=== PATIENT | male | born 1965 | race Caucasian/White ===

== ENCOUNTER 2018-08-03 08:26 | Day surgery (SDC) | payer OTHER ==
[~2018-08-03] VITALS: Ht 175.3 cm; Wt 74.1 kg
[2018-08-03 08:44] LABS: HEMATOCRIT 46.2 % (42.0-54.0); HEMOGLOBIN 16.8 g/dL (13.5-17.5); MCH 33.1 pg (26.0-34.0); MCHC 36.4 g/dL (31.0-37.0); MCV 91.1 fL (80.0-100.0); MEAN PLATELET VOLUME 9.5 fL (7.4-10.4); RBC 5.07 10x6/uL (4.20-6.10); RDW 12.9 % (11.5-14.5); WBC 9.9 10x3/uL (4.8-10.8)
[2018-08-03 08:58] LABS: CALC OSMOLALITY 275 mosm/kg (275-300); CALCIUM 8.8 mg/dL (8.5-10.1); CARBON DIOXIDE 26.8 mmol/L (21.0-32.0); CHLORIDE - SERUM 106 mmol/L (98-107); CREATININE - SERUM 0.6 mg/dL (0.6-1.3); POTASSIUM - SERUM 3.9 mmol/L (3.5-5.1); SODIUM 141 mmol/L (136-145); UREA NITROGEN 6 mg/dL (7-18); eGFR NON AFRICAN AMERICAN > 90 mL/min (90-120)
[2018-08-03 09:00] LABS: GLUCOSE 51 mg/dL (74-106)
[2018-08-03] MEDS ORDERED: PRAVACHOL40 MG PO (09:46)
[2018-08-03] MEDS ORDERED: LISINOPRIL5 MG PO (09:47)
[2018-08-03] MEDS ORDERED: GLUCOPHAGE500 MG PO (09:47)
[2018-08-03] MEDS ORDERED: HUMALOG 30100 UNITS/ SC (09:48)
[2018-08-03] MEDS ORDERED: TRESIBA FL100 UNIT/1 SC ×2 (09:48→09:49)
[2018-08-03 09:54] VITALS: BP 131/77; Ht 175.3 cm; Wt 74.1 kg
--- NOTE | 2018-08-03 13:46 | NUR ---
1132 IV WAS DC'D WHEN IV TUBING BECAME DISCONNECTED ENROUTE TO BATHROOM. PRESSURE HELD UNTIL BLEEDING STOPPED. BANDAID APPLIED TO SITE. 1210 BS RECHECKED DUE TO LOW BS EARLIER TODAY. [id number]=[phone] RECEIVED PHONE CALL FROM DR. STALLWORTH TO REFERRED PT TO DR. HENNESSY FOR EVALUATION OF ENLARGED PROSTATE. INFORMATION PASSED ON TO PT. INFORMED DR STALLWORTH OF PTS EARLIER C/O NAUSEA AND ABD PAIN BUT THAT IT WAS RESOLVING. NO ORDERS RECEIVED.
--- NOTE | 2018-08-03 13:52 | NUR ---
1250 PT TALKING AND SMILING. STATES HIS STOMACH IS NOT HURTING BUT HIS PAIN LEVEL REMAINS A 5. HE SAID THAT IS HIS BASELINE AND THAT HE ALWAYS HURTS.
--- NOTE | 2018-08-04 17:10 | OP ---
PATIENT NAME: LUKAS LANDAVERDE MEDICAL RECORD: [id number] :63 LOCATION:D.OPS ADMISSION DATE: SURGEON: JAIMIE STALLWORTH MD DATE OF OPERATION: 08/03/2018 PREOPERATIVE DIAGNOSIS: History of a complex colon polyp at 30 cm. POSTOPERATIVE DIAGNOSES: History of a complex colon polyp at 30 cm with a right superior prostatic nodule. PROCEDURE: 1. Endoscopic mucosal resection, polypectomy. 2. Epinephrine submucosal injection. SURGEON: Jaimie Stallworth MD MECHANISM ASSEMBLER: None. BLOOD LOSS: Minimal. ANESTHESIA: IV sedation. COMPLICATIONS: None. The risks, possible complications, and alternatives to the procedure were explained to the patient. He elects to proceed. ENDOSCOPIC COURSE: The patient was conveyed to the endoscopy suite electively on 08/03/2018. IV sedation was induced by the anesthesia staff. He was placed in the Moore position. A digital rectal examination was performed. A colonoscope was inserted through the anus. It was easily advanced to the cecum. The prep was fair. I slowly withdrew the endoscope. I irrigated and aspirated extensively. The polyp was noted at the 30 cm. It was a semi-pedunculated polyp. I advanced a sclerotherapy needle. Submucosal injection of epinephrine was performed for postoperative hemostasis. I then performed a submucosal injection of Eleview to raise the polyp up. I then advanced an endoscopic snare and utilizing the coagulation setting and then the cut setting, I was able to remove the polyp in its entirety. For additional hemostatic control, I advanced the argon plasma satellite dish repairer and coagulated the polypectomy site. There were 2 other smaller polyps, both sessile polyps, smaller than 7 mm and these were ablated utilizing the argon plasma satellite dish repairer with the right colon setting in the forced mode. I advanced an endoscopic retrieval net. I retrieved the polyp at 30 cm and then withdrew the endoscope and the polyp out through the anus. I will see the patient in my office in 2-3 weeks. I will set him up to see Dr. Hood due to the prostatic nodule. I will try to contact Dr. Perez to tell him about the prostatic nodule as well. I am going to see the patient in the office and likely going to return his endoscopic needs back over to Dr. Aguilar. TRANSINT:[id number] Voice Confirmation ID: [id number] DOCUMENT ID: [id number] OPERATIVE REPORT [id number] AKHIL,JAIMIE LAUREANO MD at 1710 CC: JORGE PEREZ MD and ANDRES AGUILAR DO [id number] DICTATION DATE: 08/03/18 1123 [facility] HEAD: 08/03/18 1152 [facility] [place] 08/03/18 [facility] [address] [id number]
--- NOTE | 2018-08-04 17:10 | HP ---
PATIENT: LUKAS LANDAVERDE MEDICAL RECORD: [id number] ACCOUNT: [id number] LOCATION:[place] : 63 ADMISSION DATE: 08/03/18 PCP: JORGE PEREZ MD HISTORY AND PHYSICAL EXAMINATION CHIEF COMPLAINT: Colon polyp. HISTORY OF PRESENT ILLNESS: The patient was referred by Dr. Aguilar. His primary care physician is Dr. Perez. This morning, the patient had a low blood sugar. He is to undergo colonoscopy with polypectomy. The patient was found to have a 2 to 4 cm polyp located in the sigmoid colon, 30 cm from the anus. Cold biopsies revealed a serrated adenoma. HOME MEDICATIONS: Please see the nursing list. ALLERGIES: No known drug allergies. SOCIAL HISTORY: He is a smoker. PAST MEDICAL AND SURGICAL HISTORY: Insulin-dependent diabetes mellitus, hypertension, left BKA, right arm surgery, tonsillectomy. PHYSICAL EXAMINATION: GENERAL: The patient does not appear acutely ill. He does appear chronically ill. VITAL SIGNS: Reviewed. EARS: External ears appear normal. EYES: Extraocular movements are intact. NECK: Trachea is midline. CHEST: No intercostal retractions. PULMONARY: Nonlabored, no stridor. IMPRESSION: History of a complex colon polyp at 30 cm from the anus. PLAN: Colonoscopy and polypectomy, perhaps utilizing the argon plasma sawing and assembly supervisor or endoscopic mucosal resection. TRANSINT:[id number] Voice Confirmation ID: [id number] DOCUMENT ID: [id number] JAIMIE STALLWORTH MD at 1710 CC: JEANETTE GIBSON M.D. and ANDRES AGUILAR DO [id number] DICTATION DATE: 08/03/18 1038 SENIOR BUSINESS ARCHITECT: 08/03/18 1112 [facility] 08/03/18 [facility] [address] [place] [address]
== END 2018-08-03 13:00 | disposition home or self-care (01) ==
LOC: D.OPS 08:26
PROVIDERS: Anesthesiology; ATTEND Surgery
DX: K63.5 Polyp of colon (principal)